=== PATIENT | male | born 1975 | race Caucasian/White ===

== ENCOUNTER 2018-08-30 12:27 | Outpatient (CLI) | payer BC ==
[2018-08-30 13:27] LABS: #Basophils 0.1 thou/uL (0.0-0.2); #Eosinphils 0.2 thou/uL (0.0-0.7); #Lymphocytes 2.3 thou/uL (1.20-3.40); #Monocytes 0.6 thou/uL (0.11-0.59); #Neutrophils 5.8 thou/uL (1.40-6.50); %Basophils 0.9 % (0.0-1.0); %Eosinophils 2.6 % (0.0-10.0); %Lymphocytes 25.2 % (21.0-51.0); %Monocytes 6.8 % (0.0-10.0); %Neutrophils 64.7 % (42.0-75.0); Mean Corpuscular HGB CONC 32.9 g/dL (32.0-36.0); Mean Corpuscular Hemoglobin 29.4 pg (27.0-31.0); Mean Corpuscular Volume 89.5 fL (78.0-98.0); Mean Platelet Volume 6.7 fL (7.4-10.4); Platelet Count 288 thou/uL (130-400); RBC Distribution Width 11.2 % (11.5-14.5); Red Blood Cell (RBC) Count 5.11 mill/uL (4.70-6.10)
[2018-08-30 13:56] LABS: Anion Gap 10 mmol/L (10-20); BUN (Urea Nitrogen) 11 mg/dL (8.9-20.6); Calc. Creatinine Clearance 0 mL/min (70-130); Calcium 9.3 mg/dL (7.8-10.44); Carbon Dioxide 28 mmol/L (22-29); Chloride 105 mmol/L (98-107); Estimated GFR-MDRD 84; Glucose 89 mg/dL (70-105); Potassium 4.1 mmol/L (3.5-5.1); Sodium 139 mmol/L (136-145)
== END 2018-08-30 12:28 | disposition home or self-care (01) ==
LOC: LABBT 12:27
PROVIDERS: ATTEND Orthopaedic Surgery
DX: Z01.812 Encounter for preprocedural laboratory examination (principal); S46.212A Strain of muscle, fascia and tendon of other parts of biceps, left arm, initial encounter

== ENCOUNTER 2018-09-02 06:17 | Day surgery (SDC) | payer BC ==
[2018-08-30 12:23] VITALS: BMI 40.4
[2018-09-02] MEDS ORDERED: Midazolam HCl 2 mg/2 ml Vial ONE (08:07)
[2018-09-02] MEDS ORDERED: Fentanyl 100 MCG/2 ML VIAL ONE (08:07)
[2018-09-02] MEDS ORDERED: Fentanyl 100 MCG/2 ML VIAL IV PRN (08:27)
[2018-09-02] MEDS ORDERED: Ondansetron PF 4 MG/2 ML Vial IVP PRN (08:27)
[2018-09-02] MEDS ORDERED: traMADol HCl 50 MG TAB PO PRN ×2 (08:27)
[2018-09-02] MEDS ORDERED: Zolpidem Tartrate 5 MG TAB PO PRN (08:27)
[2018-09-02] MEDS ORDERED: Promethazine HCl 25 MG/ML VIAL IM PRN (08:27)
[2018-09-02] MEDS ORDERED: HYDROcodone/Acetaminophen 10/325 mg Tablet PO PRN ×2 (08:27)
[2018-09-02] MEDS ORDERED: Ropivacaine 0.2% 550 ML 550 ML NERVE BLCK SCH (08:27)
[2018-09-02] MEDS ORDERED: PROPOFOL 200 MG/20 ML VIAL ONE (10:15)
[2018-09-02] MEDS ORDERED: Lidocaine 1% PF 5 ML VIAL ONE (10:15)
[2018-09-02] MEDS ORDERED: Ondansetron PF 4 MG/2 ML Vial ONE (10:15)
[2018-09-02] MEDS ORDERED: Ketorolac Tromethamine 30 MG/ML VIAL ONE (10:15)
[2018-09-02] MEDS ORDERED: Ropivacaine 0.2% HCl/PF (40 MG/20 ML VIAL) ONE (11:12)
[2018-09-02] MEDS ORDERED: Ropivacaine 0.5% HCl/PF (150 MG/30 ML VIAL) ONE (11:12)
[2018-09-02] MEDS ORDERED: Ketorolac Tromethamine 30 MG/ML VIAL IVP SCH (12:00)
--- NOTE | 2018-09-02 13:22 | OP ---
DATE OF PROCEDURE: 09/02/2018 PREOPERATIVE DIAGNOSIS: Left distal biceps rupture. POSTOPERATIVE DIAGNOSIS: Left distal biceps rupture. ANESTHESIA: General. LITHOGRAPHIC PLATE MAKER: Frank Go PA-C. BLOOD LOSS: Minimal. SPECIMEN: None. DRAINS: None. COMPLICATION: None. TOURNIQUET TIME: 16 minutes. DESCRIPTION OF PROCEDURE: The patient was taken to the operating room, where general anesthesia was induced. The left arm was prepped and draped in sterile fashion, and exsanguinated. Tourniquet was inflated to 250 mmHg. I made an oblique incision in the antecubital fossa, slightly distal to it, dissection was carried down through subcutaneous tissue to identify the biceps tendon. I used a #2 FiberWire and used a Krackow type suture on both sides. This was placed through an Ar[employer]rex Endobutton. I identified the radial tuberosity using subperiosteal dissection to expose bone. I measured the tendon to size 7, so I drilled it to 7 unicortical tunnel, 4.5 bicortical tunnel. I deployed the Endobutton on the opposite side of the radius and then delivered the tendon down into the hole and sutured the tendon back to itself and checked for stability. This appeared to be a very good tight fixation. Irrigation was performed. Tourniquet was released. Hemostasis was obtained. Subcutaneous tissue was closed with 2-0 Vicryl. Skin was closed with annette. The patient was placed in a sterile dressing and a posterior splint0.21 Job ID: [id number]
== END 2018-09-02 13:50 | disposition home or self-care (01) ==
LOC: SDC 06:17
PROVIDERS: ATTEND Orthopaedic Surgery
PROC: 0LQ40ZZ Repair Left Upper Arm Tendon, Open Approach (ICD-10-PCS; principal; 2018-09-02)
DX: S46.212A Strain of muscle, fascia and tendon of other parts of biceps, left arm, initial encounter (principal); X50.0XXA Overexertion from strenuous movement or load, initial encounter; Z79.51 Long term (current) use of inhaled steroids; Z79.899 Other long term (current) drug therapy
CPT/HCPCS: A4306; C1713; J1885; J2001; J2250; J2405; J2704; J2795; J3010